=== PATIENT | female | born 1970 | race Caucasian/White ===

== ENCOUNTER → 2024-04-28 11:13 | Outpatient (REF) | payer OTHER, SELFPAY | LOC: HWRAD 11:13 | PROVIDERS: ATTENDING PHYSICIAN Nurse Practitioner Family | DX: M54.2 Cervicalgia (principal); M54.50 Low back pain, unspecified; M25.532 Pain in left wrist; M25.531 Pain in right wrist; M54.6 Pain in thoracic spine | CPT/HCPCS: 72050; 72072; 72100; 73080; 73110 ==

== ENCOUNTER → 2024-10-01 14:29 | Outpatient (REF) | payer OTHER, SELFPAY | LOC: PAVMRI 14:29 | PROVIDERS: ATTENDING PHYSICIAN Anesthesiology; PRIMARYCARE PHYSICIAN Nurse Practitioner Family | DX: M54.2 Cervicalgia (principal) | CPT/HCPCS: 72141; 76014; 76015 ==

== ENCOUNTER 2024-10-10 17:57 | Emergency (ER) | payer OTHER, SELFPAY ==
[2024-10-10 18:02] VITALS: BP 107/76
[2024-10-10 19:20] VITALS: BMI 27.6
[2024-10-10 19:26] VITALS: BP 103/77
[2024-10-10 19:33] LABS: % Basophils 0.7 % (0-2); % Eosinophils 0.8 % (0-6); % Immature Granulocytes 0.3 % (0-0.5); % Lymphocytes 24.4 % (20.5-51.1); % Monocytes 6.6 % (1.7-9.3); % Neutrophils 67.2 % (42.2-75.2); Absolute Eosinophils 0.1 10^3/uL (0-0.7); Absolute Lymphocytes 1.4 10^3/uL (1.2-3.4); Absolute Monocytes 0.4 10^3/uL (0.1-0.6); Hematocrit 34.7 % (37.0-47.0); Hemoglobin 11.4 g/dL (12.0-16.0); Mean Corp Hgb Conc. 32.9 g/dL (33.0-37.0); Mean Corpuscular Hgb 27.9 pg (27.0-31.0); Mean Platelet Volume 10.3 fL (7.4-10.4); Nucleated Red Blood Cells % 0 %; Platelet Count 225 10^3/uL (130-400); Red Blood Cell Count 4.08 10^6/uL (4.20-5.40); Red Cell Dist. Width 13.4 % (11.5-14.5); White Blood Cell Count 5.9 10^3/uL (4.8-10.8)
[2024-10-10 19:48] LABS: Blood Urea Nitrogen 14 mg/dl (7-17); Calcium 9.2 mg/dl (8.4-10.2); Carbon Dioxide 24 mmol/L (22-30); Chloride 109 mmol/L (98-107); Estimated Creatinine Clearance 71 ml/min; Glucose 102 mg/dl (70-99); Potassium 4.7 mmol/L (3.5-5.1); Sodium 139 mmol/L (135-145); eGFR > 60.00
[2024-10-10 20:12] VITALS: BP 117/82
[2024-10-10 20:19] LABS: Urine Albumin 2+ (Neg - Trace); Urine Bilirubin 3+ (Negative); Urine Character Slightly Cloudy (Clear); Urine Color Amber; Urine Glucose Negative (Negative); Urine Ketone Negative (Negative); Urine Leukocyte 2+ (Negative); Urine Nitrite Positive (Negative); Urine Occult Blood 1+ (Negative); Urine Urobilinogen 4+ (Neg - 1+)
[2024-10-10 20:25] LABS: Urine Bacteria Few (Negative); Urine Squamous Cell 0-2 /LPF (Few)
[2024-10-10 20:26] LABS: Urine White Cell 26-30 /HPF (0-5)
--- NOTE | 2024-10-10 20:34 | ED.GENMED ---
History of Present Illness
General
Chief Complaint: Breathing Problem
Source: patient and family
Exam Limitations: none
Time Seen by Provider: 10/10/24 20:15
History of Present Illness
History of Present Illness:
54yoF with a history of chronic pain on Suboxone, seizures, fibromyalgia, hypothyroidism, and frequent UTIs presenting with her mother for evaluation of UTI symptoms. Patient was seen at an urgent care earlier this month for a UTI. She was
prescribed an antibiotic which she does not know the name of. She received a letter after her visit notifying her that she had a multiple drug-resistant infection. Unfortunately, she does not have this letter available for review in the urgent
care is currently closed. Patient started to experience pain in her lower back earlier today and decided to come to the ED. She continues to have UTI symptoms including dysuria. The triage note documents shortness of breath. She did have an
episode of dyspnea earlier today which she attributes to a panic attack. She denies any dyspnea currently. She denies any fevers but reports chills. No vomiting.
Past History
Past History
ED Past Medical History: Fibromyalgia and Other
ED Past Surgical History: Other (History of endoscopy, history of gastric bypass surgery, right ovarian cyst surgery)
Social History
Personal:
Living: with family
Employment: Not employed
Phy Exam
General Physical Exam
General Presentation: well appearing and no apparent distress
General age: appears stated age
General Skin: warm and dry
General Habitus: normal
General Mental: alert
ENT Exam
ENT Exam: normocephalic
Cardiovascular Exam
Cardiovascular Exam: regular rate/rhythm and no murmur
Pulmonary Exam
Pulmonary Exam: lungs clear, no respiratory distress, no rales, no crackles and no rhonchi
Gastrointestinal Exam
Gastrointestinal Exam: soft, non distended and other (+CVA tenderness bilaterally. Mild tenderness throughout lower abdomen. Abdomen soft, nondistended. No rebound or guarding.)
Neurological Exam
Neurological Exam: alert
Tk Coma Scale
Eye Opening: Spontaneous
Verbal Response: Oriented
Motor Response: Obeys Commands
GCS Total Score: 15
Skin Exam
Skin Exam: normal color and warm/dry
Psychiatric Exam
Psychiatric Exam: normal mood/affect
Scores
Heart Failure Risk
Heart Failure Risk Score: Not Applicable
Course
Orders/Labs/Results
Orders:
Orders
10/10/24 17:58
Electrocardiogram (*1) Urgent
Reason for Study: Shortness of Breath
10/10/24 17:59
EKG- Treatment ONCE
10/10/24 19:21
BMP [Basic Metabolic Panel] Urgent
CBC/With Diff [Complete Blood Count/With Diff] Urgent
[place] Urgent
Comment: ADD ON
10/10/24 20:12
Urinalysis Reflex To Culture Urgent
Date Specimen was Collected: 10/10/24
Time Specimen was Collected: 19:20
Urine Microscopic Reflex Cult Urgent
Urine Culture Urgent
TRISTON Source: U
Specimen Description:
Date Specimen was Collected: 10/10/24
Time Specimen was Collected: 19:20
10/10/24 20:32
0.9% Sodium Chloride 1000 ml [Nss] 1,000 ml IV BOLUS
HYDROmorphone [Dilaudid] 1 mg IV NOW STA
Ketorolac [Toradol] 15 mg IV NOW STA
10/10/24 20:33
Add On- LAB Urgent
Tests Added?: LFTs
CT Abd/pelvis W Iv Cont Urgent
Comment:
Reason For Exam: Lower abd/back pain, UTI symptoms
CR Chest - 2 Views Urgent
Comment:
Reason For Exam: SOB
10/10/24 20:46
Lactate Level [Lactic Acid] Urgent
Troponin I Urgent
10/11/24 00:08
CefTRIAXone [Rocephin] 2,000 mg IV NOW STA
Ketorolac [Toradol] 15 mg IV NOW STA
Oxycodone/Acetaminophen [Percocet 5/325] 1 tablet PO NOW STA
10/11/24 00:23
Sterile Water [Sterile Water For Injection] 20 ml .ROUTE .STK-MED
Abnormal Lab Results
10/10/24 10/10/24
19:21 20:12
RBC 4.08 L 10^6/uL
(4.20-5.40)
Hgb 11.4 L g/dL
(12.0-16.0)
Hct 34.7 L %
(37.0-47.0)
MCHC 32.9 L g/dL
(33.0-37.0)
Chloride 109 H mmol/L
(98-107)
Glucose 102 H mg/dl
(70-99)
Alkaline Phosphatase 153 H U/L
(38-126)
Total Protein 6.2 L g/dl
(6.3-8.2)
Ur Occult Blood Reflex 1+ A
(Negative)
Urine Nitrite (Reflex) Positive A
(Negative)
Urine Bilirubin 3+ A
(Negative)
Urine Urobilinogen 4+ A
(Neg - 1+)
Leukocyte Esterase Rfl 2+ A
(Negative)
Urine RBC 3-6 A /HPF
(0-2)
Urine WBC (Reflex) 26-30 A /HPF
(0-5)
Urine Bacteria (Reflex) Few A
(Negative)
Urine Albumin (Reflex) 2+ A
(Neg - Trace)
10/10/24 19:21
10/10/24 19:21
Vital Signs
Initial and Last Documented VS:
Initial Vital Signs
Temp Pulse Resp BP Pulse Ox
98.0 F 101 16 107/76 98
10/10/24 18:02 10/10/24 18:02 10/10/24 18:02 10/10/24 18:02 10/10/24 18:02
Last Documented Vital Signs
Temp Pulse Resp BP Pulse Ox
98.0 F 69 14 113/76 95
10/10/24 18:02 10/11/24 00:30 10/11/24 00:30 10/11/24 00:00 10/11/24 00:15
MDM/Problems Addressed
Differential Diagnosis Includes:
54yoF here with UTI symptoms and low back pain. Hx of chronic low back pain. Recently told that she had a drug resistant UTI but unfortunately the urine culture is not available for review. Had an episode of SOB earlier today which has resolved.
Both patient and mother state this was from an anxiety attack. She is afebrile with stable vital signs. She is well-appearing in no acute distress. CVA tenderness present bilaterally. Differential diagnosis includes but is not limited to: UTI,
pyelonephritis, acute on chronic low back pain
Initial ED plan: Basic labs obtained in triage. White count and renal function normal. UA pending. EKG shows normal sinus rhythm without ischemic changes. Will check lactate, troponin, chest x-ray, and CT abdomen. Patient requesting pain
medications. IV Dilaudid, Toradol, and fluid bolus ordered.
*EKG
Interpreted by ED Provider?: Yes
EKG Intrepretation Date: 10/10/24
Heart Rate: 77
Rate: normal
Rhythm: sinus
Evans: normal axis
Interval: normal interval
QRS Pattern: normal QRS
Ischemia: no ischemia
*Critical Care Note
Total Time (30-74mins, 75-104mins- exclusive of procedures): Not Applicable
Update Note
Update Note:
Lactate within normal limits. UA is nitrite positive with 26-30 WBCs consistent with infection. No imaging evidence of pyelonephritis or renal abscess on CT. Patient not meeting SIRS criteria. No indication for hospitalization at this time.
Unfortunately, I do not have her prior urine culture available for review. The only urine culture in [facility] was from 2021 which grew out mixed cas and probable contamination. Will give dose of IV Rocephin prior to discharge. She was started
on a course of cefdinir. Strict ED return precautions discussed and patient advised to follow-up closely with her PCP. Patient in agreement with plan and was discharged in stable condition.
ED Attending Note
-
Portions of this chart may have been created with voice recognition software.� Occasional wrong word or��sound alike� substitutions may have occurred due to the inherent limitations of voice recognition software.
Discharge Plan
Departure
Patient Disposition: Home (Routine Discharge)
Date of Disposition: 10/11/24
Time of Disposition: 00:09
Patient with high blood pressure during this ER visit?: No
Discharge Problem:
Urinary tract infection
Instructions: Urinary tract infections in adults
Prescriptions:
New
cefdinir 300 mg capsule
300 mg PO BID Qty: 14 0RF
No Action
gabapentin 600 MG tablet
600 mg PO TID
levothyroxine 75 MCG tablet
75 mcg PO Q48H
hydromorphone 2 MG tablet
2 mg PO Q4HPRN PRN (Reason: moderate to severe pain)
Patient Comments:
10/31/2021: last filled 10/26/21, 20 tabs for 5 days from [facility][id number]
levothyroxine 50 MCG tablet
50 mcg PO Q48H
ergocalciferol (vitamin D2) 50,000 UNITS capsule
50,000 units PO WEEKLY
duloxetine 30 MG capsule,delayed release(DR/EC)
30 mg PO DAILY
duloxetine 60 MG capsule,delayed release(DR/EC)
60 mg PO DAILY
valproic acid 250 MG capsule
500 mg PO BID 0RF
fentanyl 25 MCG patch 72 hour
25 mcg transdermal Q72H Qty: 10 0RF
prednisone 50 mg tablet
50 mg PO DAILY 4 Days Qty: 4 0RF
tizanidine [Zanaflex] 4 mg capsule
4 mg PO Q8H PRN (Reason: muscle spasticity) Qty: 10 0RF
Referrals:
[facility] [Provider Group]
UNKNOWN - PT DOES,NOT KNOW [Family Provider] -
Activity Restrictions/Additional Instructions:
Take antibiotics as prescribed. Drink plenty of fluids.
Please follow-up with your family doctor. Return to the ER with any new or worsening symptoms including fevers.
Interventions
Interventions:
*Risk Screen - Suicide Last Done: 10/10/24 18:02
*General Assessment Last Done: 10/10/24 19:20
*Neglect/Abuse Screening Last Done: 10/10/24 18:02
*ED- Fall Risk Assessment Last Done: 10/10/24 19:20
*ED COVID-19 Vaccine History Last Done: 10/10/24 19:20
*Nursing Disposition Last Done: 10/11/24 00:58
ED- Cardiac Assessment Last Done: 10/10/24 20:48
ED- Pulmonary Assessment Last Done: 10/10/24 20:48
Discharge Date and Time
Discharge Date/Time: 10/11/24 00:59
Print Language: YORUBA
--- NOTE | 2024-10-10 20:47 | EDRN ---
Patient ambulated into the bathroom and back in bed resting with mom at beside.
[2024-10-10] MEDS: NSS 1000 IV (20:49)
[2024-10-10] MEDS: TORADOL 15 MG IV (20:50)
[2024-10-10] MEDS: DILAUDID 1 MG IV (20:50)
[2024-10-10 21:00] VITALS: BP 118/88
[2024-10-10 21:15] LABS: Lactic Acid 0.8 mmol/L (0.7-2.0)
[2024-10-10 21:17] LABS: ALT (SGPT) 21 U/L (0-35); AST (SGOT) 25 U/L (14-36); Alkaline Phosphatase 153 U/L (38-126); Total Bilirubin 0.6 mg/dl (0.2-1.3); Total Protein 6.2 g/dl (6.3-8.2)
[2024-10-10 21:28] LABS: Troponin I 0.025 ng/ml
[2024-10-10 21:38] LABS: Albumin 3.8 g/dl (3.5-5.0); Direct Bilirubin 0.1 mg/dl (0.0-0.4)
--- NOTE | 2024-10-10 22:45 | EDRN ---
Patient asking about pain meds, provider aware, at moment not ordering more and waiting for CT to be read.
[2024-10-10 23:00] VITALS: BP 110/81
--- NOTE | 2024-10-10 23:42 | EDRN ---
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
[2024-10-11] VITALS: BP 113/76
[2024-10-11] MEDS: PERCOCET 5/325 1 TABLET PO (00:25)
[2024-10-11] MEDS: ROCEPHIN 2000 MG IV (00:26)
[2024-10-11] MEDS: TORADOL 15 MG IV (00:26)
== END 2024-10-11 00:59 | disposition home or self-care (01) ==
LOC: EMR 17:57
PROVIDERS: Physician Assistant; EMERGENCY PHYSICIAN Emergency Medicine
DX: N39.0 Urinary tract infection, site not specified (principal); E03.9 Hypothyroidism, unspecified; M79.7 Fibromyalgia; Z98.84 Bariatric surgery status
CPT/HCPCS: 99285; 96374; 96375; 96376; 96361; 71046; 74177; 80048; 80076; 81003; 81015; 83605; 84484; 85025; 87086; 93005; Q9967

== ENCOUNTER → 2024-10-12 13:48 | Outpatient (REF) | payer OTHER, SELFPAY | LOC: PAVMRI 13:48 | PROVIDERS: ATTENDING PHYSICIAN Anesthesiology; PRIMARYCARE PHYSICIAN Nurse Practitioner Family | DX: M54.16 Radiculopathy, lumbar region (principal) | CPT/HCPCS: 72148; 76014; 76015 ==

== ENCOUNTER → 2024-10-14 13:48 | Outpatient (REF) | payer OTHER, SELFPAY | LOC: PAVMRI 13:48 | PROVIDERS: ATTENDING PHYSICIAN Anesthesiology; PRIMARYCARE PHYSICIAN Nurse Practitioner Family | DX: M54.6 Pain in thoracic spine (principal); M54.14 Radiculopathy, thoracic region | CPT/HCPCS: 72146; 76014; 76015 ==